=== PATIENT | female | born 1990 | race Hispanic/Latino ===

== ENCOUNTER 2018-07-19 06:20 | Day surgery (SDC) | payer OTHER ==
[2018-07-19] MEDS ORDERED: CEFAZOLIN/SWI 1gm 1 GM/10 ML SYR ONE ×2 (06:49)
[2018-07-19] MEDS ORDERED: Ringers Lactate 1,000 ML IV ONE (06:49)
[2018-07-19] MEDS ORDERED: LIDOCAINE 1% MPF 5 ML VIAL ONE (06:50)
[2018-07-19] MEDS ORDERED: CEFAZOLIN SODIUM 1 GM/VIAL ONE (06:59)
[2018-07-19] MEDS ORDERED: BACITRACIN 50000 UNIT VIAL ONE (06:59)
[2018-07-19] MEDS ORDERED: GENTAMICIN SULF 80 MG/2ML INJ ONE (06:59)
[2018-07-19] MEDS ORDERED: LIDOCAINE 1% MPF 30 ML VIAL ONE (07:01)
[2018-07-19] MEDS ORDERED: NS 0.9% VIAL 20 ML ONE (07:04)
[2018-07-19] MEDS ORDERED: SCOPOLAMINE HYDROBROMIDE PATCH TD ONE (07:08)
[2018-07-19] MEDS ORDERED: PROPOFOL 200 MG/20 ML VIAL IV ONE (07:12)
[2018-07-19] MEDS ORDERED: FENTANYL CITR 100 MCG/2 ML ONE (07:13)
[2018-07-19] MEDS ORDERED: LIDOCAINE 2% MPF 5 ML VIAL ONE (07:14)
[2018-07-19] MEDS ORDERED: ROCURONIUM 50 MG/5 ML VIAL IV ONE (07:14)
[2018-07-19] MEDS ORDERED: MIDAZOLAM HCL 2 MG/2 ML INJ ONE (07:15)
[2018-07-19] MEDS ORDERED: ONDANSETRON 4 MG/2 ML VIAL ONE (07:15)
[2018-07-19] MEDS ORDERED: LIDOCAINE 1.5% W/EPI AMP 5 ML ONE (07:37)
[2018-07-19] MEDS ORDERED: DEXAMETHASONE 4 MG/ML VIAL ONE (07:44)
[2018-07-19] MEDS ORDERED: GLYCOPYRROLATE 0.2 MG/ML SYR ONE (08:38)
[2018-07-19] MEDS ORDERED: NEOSTIGMINE 1 MG/ML -10 ML VIAL ONE (08:38)
[2018-07-19] MEDS ORDERED: KETOROLAC 30 MG/ML INJ ONE (08:38)
[2018-07-19] MEDS: HYDROMORPHONE HCL 1 MG/ML INJ ONE ×2 (09:10→09:17)
[2018-07-19] MEDS: MEPERIDINE HCL 25 MG/0.5 ML ONE ×2 (09:14→09:20)
[2018-07-19] MEDS ORDERED: PROMETHAZINE 25 MG/ML VIAL ONE (09:18)
--- NOTE | 2018-07-19 21:41 | OP ---
Date of Procedure: 07/19/2018 Surgeon: Jerad Ortiz MD Receptionist Secretary: ROCIO Ford Preoperative Diagnoses: Bilateral mammary hypoplasia and mild asymmetry. Postoperative Diagnoses: Bilateral mammary hypoplasia and mild asymmetry. Operation Performed: Bilateral breast augmentation using Sientra smooth, round gel HSC high-profile implants placed through an inframammary approach in a dual plane pocket. Anesthesia: General endotracheal anesthesia and 15 cc of 1.5% lidocaine with 1:200,000 epinephrine i nfiltrated into the inframammary fold area prior to prepping and draping. Blood Loss: Minimal. Specimens: There were no specimens sent. Counts: All needle, sponge, and instrument counts were correct at the end of the case. Indications: The patient is a 27-year-old white female, interested in aesthetic rejuvenation of the breasts for mild involutional change and mild asymmetry and mild mammary hypoplasia. The patient und erstands the risks and limitations of the procedure, the implants and her own anatomy and wishes to p roceed. Description Of Procedure: The patient was seen in the preoperative holding area, the operative plan reviewed. Implant size, shape and type of implant material were confirmed with the patient. She was then marked and she was then given Ancef 2 g IV piggyback prior to skin incision within 1 hour and T ED hose and sequential compression devices were placed on the lower extremities and activated prior t o induction of general anesthesia. She was then brought to the operating suite and placed in a comfo rtable supine position on the bed. After induction of general anesthesia, the arms were padded at th e side and taped across the lower abdomen. Following this, the breasts were infiltrated with the lid ocaine and epinephrine solution based on preoperative markings and then the chest was prepped and demi ped in sterile fashion. In similar fashion bilaterally based on preoperative markings, an inframamma ry was made sharply through the skin and then cautery was used through the subcutaneous tissues, supe rficial fascia down to the chest wall where the lateral border of the pectoralis was identified and t he pectoralis elevated off the chest wall above its origin along the inframammary fold up to a point corresponding to the external extent of the medial inframammary fold. 1 cm above its origin, the mus gema was then divided to create a dual plane pocket from medial to lateral and then further dissection off the pec minor and remaining portion of the chest wall both superiorly and medially to create a u niform symmetrical dual plane pocket. Next, the pocket was irrigated with saline and inspected and f ound to have satisfactory hemostasis with the electrocautery and then irrigation with a 50:50 mix of 10% Betadine solution and a triple antibiotic solution (500 cc of warm saline with 1 g of Ancef, 80 m g of gentamicin, and 50,000 units of bacitracin). After allowing this to set in the pocket for appro ximately 10 minutes, the pockets were suctioned out and inspected and found to have satisfactory hemo stasis and then irrigated with just straight triple antibiotic solution. Gloves were changed and wip ed down with a triple antibiotic soaked lap pad, which was placed in front of the incisions and Betad ine-soaked sponges were placed over the nipple-areolar complex and then using a no-touch technique wi th a Aragon funnel, the Sientra smooth, round, high-profile gel implant, 440 cc, were placed using th e Aragon funnel and minor pocket adjustments were made with the uterine sound. The pocket was found to have satisfactory hemostasis and good symmetry and adequate dimensions for the implants placed. T he pockets were then closed with a deep running layer and the fascial layer of 2-0 PDS and then a blaise p subdermal subcutaneous layer of interrupted 3-0 PDS and then a running subcuticular 4-0 Monocryl. The incisions were then dressed with Xeroform gauze, Mastisol, cotton gauze and a Tegaderm dressing. The patient was placed in a light cotton bra. She was then awakened, extubated and taken to [facility] condition where she will be discharged home in care of her significant other. She has in structions for ice, elevation and limited activity, especially the upper arm movement and no strenuou s activity or getting her heart rate or blood pressure up. She has tramadol for pain control to take as directed as needed, Flexeril muscle relaxant to take as directed as needed, oral doxycycline to t stan as directed, oral Zofran ODT to take as directed as needed for nausea. She will be advanced to a regular diet as tolerated. She will follow up in the office tomorrow for a recheck. GP/MODL Voice ID: [id number] Report ID: [id number]
== END 2018-07-19 11:09 | disposition home or self-care (01) ==
LOC: OR 06:20
PROVIDERS: ATTEND Surgery Plastic and Reconstructive Surgery
PROC: 0H0V0JZ Alteration of Bilateral Breast with Synthetic Substitute, Open Approach (ICD-10-PCS; principal; 2018-07-19 07:30)
DX: N64.82 Hypoplasia of breast (principal); N64.89 Other specified disorders of breast
CPT/HCPCS: 81025; J0690; J1170; J1580; J2001; J2175; J2250; J2405; J2550; J2704; J2710; J3010